=== PATIENT | male | born 1995 | race Caucasian/White ===

== ENCOUNTER 2017-07-05 00:04 | Emergency (ER) | payer BC, OTHER ==
[~2017-07-05] VITALS: Ht 172.7 cm; Wt 59.0 kg
[2017-07-05 00:15] VITALS: RESP 18
[2017-07-05 00:24] VITALS: BP 111/74; PULSE 93; RESP 16; TEMP 96.9; O2SAT 100
--- NOTE | 2017-07-05 01:30 | PD ---
HPI Chief Complaint: Alcohol/Drug Intoxication Time Seen by Provider: 01:22 Travel History International Travel<30 days: No Contact w/Intl Traveler<30days: No Traveled to known affect area: No History of Present Illness HPI The patient is a 21-year-old male that has been drinking alcohol heavily tonight , the patient is on spring and he is from [place]. He states he came to the emergency department because "nobody cares about me". He states he is not suicidal. He is not wanting to hurt anyone also. He denies using any drugs , he states the only thing he has used is nicotine and alcohol. [facility] Past Medical History Asthma: Yes (SPORTS INDUCED) Tetanus Vaccination: Unknown Past Surgical History Surgical History: Unable to Obtain Other Surgery: Yes (ENDOSCOPY TO REMOVE PENNIES AT 6 YEARS OLD) Social History Alcohol Use: Yes (AT LEAST 1 DAY A WEEK) Tobacco Use: No Substance Use: Yes (MARIJUANA) Allergies-Medications (Allergen,Severity, Reaction): Uncoded Allergies: SEAFOOD (Allergy, Unknown, 07/05/17) Review of Systems Except as stated in HPI: all other systems reviewed are Neg Physical Exam Narrative GENERAL: The patient is alert, intoxicated appearing, oriented 3, crying but otherwise in no apparent distress. He denies any pain. His vital signs are normal. SKIN: Focused skin assessment warm/dry. HEAD: Atraumatic. Normocephalic. EYES: Pupils equal and round. No scleral icterus. No injection or drainage. ENT: No nasal bleeding or discharge. Mucous membranes pink and moist. NECK: Trachea midline. No JVD. CARDIOVASCULAR: Regular rate and rhythm. No murmur appreciated. RESPIRATORY: No accessory muscle use. Clear to auscultation. Breath sounds equal bilaterally. GASTROINTESTINAL: Abdomen soft, non-tender, nondistended. Hepatic and splenic margins not palpable. No guarding or rebound is present. MUSCULOSKELETAL: No obvious deformities. No clubbing. No cyanosis. No edema. NEUROLOGICAL: Awake and alert. No obvious cranial nerve deficits. Motor grossly within normal limits. Normal speech. PSYCHIATRIC: Appropriate mood and affect; insight and judgment normal. Data Data Last Documented VS Vital Signs Date Time Temp Pulse Resp B/P (MAP) Pulse Ox O2 Delivery O2 Flow Rate FiO2 07/05/17 00:24 96.9 93 16 111/74 (86) 100 Room Air Orders Orders Complete Blood Count With Diff (07/05/17 01:25) Comprehensive Metabolic Panel (07/05/17 01:25) Magnesium (Mg) (07/05/17 01:25) Alcohol (Ethanol) (07/05/17 01:25) Sodium Chlor 0.9% 1000 Ml Inj (Ns 1000 M (07/05/17 01:45) Ondansetron Inj (Zofran Inj) (07/05/17 01:45) Labs Laboratory Tests Test 07/05/17 01:42 White Blood Count 5.2 TH/MM3 Red Blood Count 5.07 MIL/MM3 Hemoglobin 15.7 GM/DL Hematocrit 48.0 % Mean Corpuscular Volume 94.8 FL Mean Corpuscular Hemoglobin 31.0 PG Mean Corpuscular Hemoglobin Concent 32.7 % Red Cell Distribution Width 12.0 % Platelet Count 190 TH/MM3 Mean Platelet Volume 9.4 FL Neutrophils (%) (Auto) 53.8 % Lymphocytes (%) (Auto) 32.7 % Monocytes (%) (Auto) 8.2 % Eosinophils (%) (Auto) 3.9 % Basophils (%) (Auto) 1.4 % Neutrophils # (Auto) 2.8 TH/MM3 Lymphocytes # (Auto) 1.7 TH/MM3 Monocytes # (Auto) 0.4 TH/MM3 Eosinophils # (Auto) 0.2 TH/MM3 Basophils # (Auto) 0.1 TH/MM3 CBC Comment DIFF FINAL Differential Comment Blood Urea Nitrogen 10 MG/DL Creatinine 1.20 MG/DL Random Glucose 115 MG/DL Total Protein 8.5 GM/DL Albumin 5.0 GM/DL Calcium Level 9.3 MG/DL Magnesium Level 2.4 MG/DL Alkaline Phosphatase 106 U/L Aspartate Amino Transf (AST/SGOT) 27 U/L Alanine Aminotransferase (ALT/SGPT) 41 U/L Total Bilirubin 0.3 MG/DL Sodium Level 141 MEQ/L Potassium Level 3.7 MEQ/L Chloride Level 105 MEQ/L Carbon Dioxide Level 25.4 MEQ/L Anion Gap 11 MEQ/L Estimat Glomerular Filtration Rate 78 ML/MIN Ethyl Alcohol Level 292 MG/DL MDM Medical Decision Making Medical Screen Exam Complete: Yes Emergency Medical Condition: Yes Medical Record Reviewed: Yes Interpretation(s) The CBC is normal. The complete metabolic profile shows a GFR of 78 and total protein of 8.5 but is otherwise unremarkable. The alcohol level is 292. Differential Diagnosis Alcohol intoxication, suicidal depression, other drug intoxication, alcohol induced mood disorder Narrative Course The patient has alcohol intoxication. He needs to discontinue alcohol. He also has alcohol induced mood disorder but is not suicidal. It is now 0300 and the patient is walking around normally. Additional Instructions: Discontinue alcohol. Alcohol can make you get into a depressed mood. Med/Other Pt SpecificInfo: No Change to Meds Disposition: 01 DISCHARGE HOME Reinaldo Ellis MD Jul 05, 2017 01:30
[2017-07-05] MEDS ORDERED: ONDANSETRON HCL 4 MG/2 ML VIAL IV ONE (01:45)
[2017-07-05] MEDS: SODIUM CHLOR 0.9% 1000 ML INJ 1,000 ML IV SCH ×2 (01:47→02:09)
[2017-07-05 01:55] LABS: AUTOMATED NEUTROPHIL # 2.8 TH/MM3 (1.8-7.7); BASOPHIL # 0.1 TH/MM3 (0-0.2); BASOPHIL % 1.4 % (0.0-2.0); EOSINOPHIL # 0.2 TH/MM3 (0-0.4); EOSINOPHIL % 3.9 % (0.0-4.0); HEMOGLOBIN 15.7 GM/DL (13.0-17.0); LYMPH % 32.7 % (9.0-44.0); LYMPHOCYTE # 1.7 TH/MM3 (1.0-4.8); MEAN CELL VOLUME 94.8 FL (80.0-100.0); MEAN CORPUSCULAR HGB CONC 32.7 % (32.0-36.0); MEAN PLATELET VOLUME 9.4 FL (7.0-11.0); MONO % 8.2 % (0.0-8.0); MONOCYTE # 0.4 TH/MM3 (0-0.9); NEUT % 53.8 % (16.0-70.0); PLATELET COUNT 190 TH/MM3 (150-450); RED BLOOD COUNT 5.07 MIL/MM3 (4.50-5.90); WHITE BLOOD COUNT 5.2 TH/MM3 (4.0-11.0)
[2017-07-05 02:02] LABS: CHLORIDE 105 MEQ/L (98-107); SODIUM (NA) 141 MEQ/L (136-145)
[2017-07-05 02:05] LABS: CALCIUM 9.3 MG/DL (8.5-10.1)
[2017-07-05 02:06] LABS: BICARBONATE 25.4 MEQ/L (21.0-32.0); BLOOD UREA NITROGEN 10 MG/DL (7-18); GLUCOSE,RANDOM 115 MG/DL (74-106); MAGNESIUM 2.4 MG/DL (1.5-2.5)
[2017-07-05 02:09] LABS: ALT (GPT) 41 U/L (9-52); AST (GOT) 27 U/L (15-39); GLOMERULAR FILTRATION RATE 78 ML/MIN (>89)
[2017-07-05 02:11] LABS: TOTAL BILIRUBIN ADULT 0.3 MG/DL (0.2-1.0); TOTAL PROTEIN 8.5 GM/DL (6.4-8.2)
[2017-07-05 02:12] LABS: ALKALINE PHOSPHATASE 106 U/L (45-117)
[2017-07-05 03:03] VITALS: BP 103/51
== END 2017-07-05 03:13 | disposition home or self-care (01) ==
LOC: PHED 00:04
DX: F10.94 Alcohol use, unspecified with alcohol-induced mood disorder (principal); F10.929 Alcohol use, unspecified with intoxication, unspecified; Y90.8 Blood alcohol level of 240 mg/100 ml or more; J45.909 Unspecified asthma, uncomplicated; Z72.0 Tobacco use
CPT/HCPCS: 80053; 80307; 83735; 85025; 96361; 96374; 99284; J2405; J7030